=== PATIENT | female | born 1995 | race Caucasian/White ===

== ENCOUNTER → 2017-01-14 | Outpatient (CLI) | payer OTHER ==
[~2017-01-14] MED LIST: ORUDIS75 M1 PO
--- NOTE | ~2017-01-14 | US6 ---
[facility] A Service of [facility] RADIOLOGY TEXT RESULTS PATIENT: ARUN MADISON LOCATION: SG : 93 UNIT #: [id number] AGE: [address]: aPdmini Horn MD SEX: F ORDER DR: [id number] [address] [id number] [id number] O MR#: [id number] Acc #: [id number] NAME: ARUN MADISON : 1995 SEX: F STUDY DATE/TIME: 01/14/2017 9:15 UNIT: [facility]US ROOM: STUDY DESCRIPTION: US Abdominal Limited Attending Physician: Padmini Honr M.D. Referring Physician: Padmini Horn M.D. Ordering Physician: Padmini Horn M.D. Primary Care Physician: Padmini Horn M.D. MEDICAL IMAGING REPORT This report is preliminary unless electronic signature is present. EXAM Right upper quadrant ultrasound, 01/14/2017 HISTORY Right upper quadrant abdominal pain after eating for 2 months with nausea for 1 day. FINDINGS The liver is homogeneous in echotexture and demonstrates no cystic or solid mass lesions. The intra and extrahepatic bile ducts are not dilated. The gallbladder is normal with no evidence of cholelithiasis, wall thickening or pericholecystic fluid. The common duct measures 4.0 mm. The pancreas is poorly visualized due to overlying bowel gas. The right kidney is normal. IMPRESSION Poor visualization of the pancreas due to overlying bowel gas. Otherwise negative right upper quadrant ultrasound. Dictated by... Major Valente M.D. THIS IS AN ELECTRONICALLY VERIFIED REPORT Major Valente M.D. at 01/14/2017 4:53 PM LACEY/orlin TD: 01/14/2017 13:19 JOB #: [id number] MEDICAL IMAGING REPORT Page 1 of 1
== END | disposition home or self-care (01) ==
LOC: SGUS 08:55
DX: R10.11 Right upper quadrant pain (principal); G89.29 Other chronic pain
CPT/HCPCS: 76705